=== PATIENT | male | born 1990 | race Caucasian/White ===

== ENCOUNTER 2018-11-14 14:31 | Emergency (ER) | payer OTHER ==
[~2018-11-14] VITALS: Ht 170.2 cm; Wt 68.9 kg
--- NOTE | 2018-11-14 15:35 | REP ---
RIGHT SHOULDER, THREE VIEWS: HISTORY: Trauma. There is no acute fracture or dislocation. The joint spaces are normal in appearance. IMPRESSION: There is no acute fracture or dislocation. Electronically Signed by Guy Gomez MD 11/14/2018 03:37 P
[2018-11-14] MEDS ORDERED: LIDOCAINE 2% MDV 20 ML VIAL SC ONE (16:15)
[2018-11-14] MEDS ORDERED: methylPREDNISolone INJ 125 MG/2 ML VIAL (J2930) IM ONE (16:15)
[2018-11-14] MEDS ORDERED: KETOROLAC TROMETHAMINE 10 MG TAB PO ONE (16:15)
[2018-11-14] MEDS ORDERED: KETO10TAB PO (16:26)
[2018-11-14 16:34] VITALS: BP 120/78
== END 2018-11-14 16:40 | disposition home or self-care (01) ==
LOC: M ED 14:31
DX: M54.12 Radiculopathy, cervical region (principal); S46.911A Strain of unspecified muscle, fascia and tendon at shoulder and upper arm level, right arm, initial encounter; X58.XXXA Exposure to other specified factors, initial encounter; Y92.89 Other specified places as the place of occurrence of the external cause; Z77.098 Contact with and (suspected) exposure to other hazardous, chiefly nonmedicinal, chemicals
CPT/HCPCS: 20552; 73030; 96372; 99283; J2930

== ENCOUNTER 2019-08-06 22:39 | Inpatient (IN) | payer OTHER ==
[~2019-08-06] VITALS: Ht 172.7 cm; Wt 65.2 kg
[~2019-08-06 22:39] MED LIST: KETO10TAB PO
[2019-08-06 23:35] LABS: HEMATOCRIT 46.7 % (42.0-52.0); HEMOGLOBIN 15.9 g/dl (13.5-17.5); MEAN CORPUSCULAR HEMOGLOBIN 30.5 pg (27.0-33.0); MEAN CORPUSCULAR VOLUME 89.6 fl (80.0-96.0); PLATELET COUNT, AUTOMATED 250 10^3/uL (150-450); RED BLOOD COUNT 5.21 10^6/uL (4.30-6.10); WHITE BLOOD COUNT 8.1 10^3/uL (4.0-10.0)
[2019-08-06 23:59] LABS: ACETAMINOPHEN LEVEL < 2.0 UG/ML (10.0-30.0); ALBUMIN 4.1 GM/DL (3.2-5.2); ALT/SGPT 29 U/L (12-78); BILIRUBIN,DIRECT 0.2 MG/DL (0.0-0.2); BILIRUBIN,TOTAL 0.4 MG/DL (0.2-1.0); BLOOD UREA NITROGEN 6 MG/DL (7-18); CALCIUM LEVEL 8.4 MG/DL (8.5-10.1); CARBON DIOXIDE LEVEL 25 MEQ/L (21-32); CHLORIDE LEVEL 110 MEQ/L (98-107); CREATININE FOR GFR 0.84 MG/DL (0.70-1.30); ETHYL ALCOHOL (ETHANOL) 0.312 % (0.000-0.010); GLOMERULAR FILTRATION RATE > 60.0 (>60); GLUCOSE, FASTING 103 MG/DL (70-100); POTASSIUM SERUM 3.2 MEQ/L (3.5-5.1); SALICYLATE LEVEL < 1.7 MG/DL (5.0-30.0); SODIUM LEVEL 144 MEQ/L (136-145); THYROID STIMULATING HORMONE 0.706 uIU/ML (0.358-3.740); TOTAL PROTEIN 7.7 GM/DL (6.4-8.2)
[2019-08-07 00:06] LABS: AMPHETAMINES LEVEL URINE NEGATIVE (NEGATIVE); BARBITURATES URINE NEGATIVE (NEGATIVE); BENZODIAZEPINES URINE NEGATIVE (NEGATIVE); CANNABINOIDS URINE NEGATIVE (NEGATIVE); COCAINE METABOLITE URINE NEGATIVE (NEGATIVE); METHADONE URINE NEGATIVE (NEGATIVE); OPIATES URINE NEGATIVE (NEGATIVE); PHENCYCLIDINE URINE NEGATIVE (NEGATIVE)
[2019-08-07] MEDS ORDERED: LORazepam 2 MG TAB PO PRN (07:15)
[2019-08-07] MEDS: FOLIC ACID 1 MG TAB PO SCH (10:42)
[2019-08-07] MEDS: MULTIVITAMINS/MINERALS THERAP 1 TAB PO SCH (10:42)
[2019-08-07] MEDS: THIAMINE 100 MG TAB PO SCH ×2 (10:42→21:17)
[2019-08-07] MEDS ORDERED: POTASSIUM CHLORIDE 10 MEQ SR TABLET PO ONE (15:30)
[2019-08-07] MEDS ORDERED: ACETAMINOPHEN TAB 650MG DOSE (2X325MG) PO PRN (17:45)
[2019-08-07] MEDS ORDERED: MAALOX 30 ML SUSP *UDC PO PRN (17:45)
[2019-08-07] MEDS ORDERED: MOM 30ML SUSPENSION UDC PO PRN (17:45)
[2019-08-07 19:32] VITALS: BP 170/82
[2019-08-08 06:00] VITALS: BP 139/79
[2019-08-08] MEDS: FOLIC ACID 1 MG TAB PO SCH (08:59)
[2019-08-08] MEDS: THIAMINE 100 MG TAB PO SCH ×2 (08:59→20:31)
[2019-08-08] MEDS: NICOTINE 21MG/24HR 1 EA TRANSDERMAL TD SCH (08:59)
[2019-08-08] MEDS: MULTIVITAMINS/MINERALS THERAP 1 TAB PO SCH (08:59)
--- NOTE | 2019-08-08 11:26 | MHHPEPDOC ---
[facility] History & Physical History and Physical DATE OF ADMISSION: Aug 07, 2019 at 17:37 New Patient Lakhwinder Avelar MRN: N/A Date of : N/A Date of Service: 08/08/2019 Chief Complaint "This is a misunderstanding." History of Present Illness The patient, a 29-year-old man, was admitted after reportedly becoming drunk and making unusual statements on the phone to a friend. He was admitted out of abundance of caution, however, the patient became sober and reported that he had no suicidal thoughts or intentions and had been severely intoxicated. The patient's fiance was called in our collateral gathering where she revealed that he has not been suicidal and that she has noticed Facebook posts. When I met the patient, the patient reported that he had otherwise been in his normal state of health, denying any significant depression prior, reports that he began to drink and had been complaining about his fiancee making unusual suicidal statements, but does not remember a fair portion of it. He denies any major interactions with mental health prior and reports that he is looking forward to being on Sunday. Review Of Systems Depression: As above. Anxiety: The patient denies any excessive worry associated with physical symptoms. They deny any experience of discreet panic in the past. Nia: The patient denies any episodes of euphoria/dysphoria associated with decreased need for sleep, hedonism, talkatively or impulsivity lasting longer than 5 days. Psychotic: The patient denies any experiences of auditory or visual hallucinations. They deny any episodes of paranoia or delusional thinking in the past Trauma: The patient denies any traumatic events associated with nightmares or intrusive thoughts. Borderline: The patient screens negative for borderline personality at this junction. Change depression dura as above Past Psychiatric History Has gone to [facility] counseling and has voluntarily gone to [facility] addictions programs/ on no current medications. Allergies Please see below. Family Psychiatric History The patient denies/is unaware any history of mental health history including addictions and suicide. Social History The patient is a never man who is planning to get to his fiance 4-5 months, currently lives in the [facility], identifies as heterosexual, has 2 children from previous relationships who don't live with him at this time and no legal involvement, currently is [employer], completed trade school for commercial driving, has difficulties with DUI's/public intoxication twice, grew up with parents, with a good relationship with mom, poor relation with father. Has been in the a little over a year and a half. Substance Abuse History The patient reports drinking heavily from middle school at age 14, rarely addicted to alcohol. Reports some vaporizer, tobacco. Denies other illicit subs tances. Medical History Patient has no significant past medical history. Mental Status Examination General: Well dressed with good hygiene Speech: Spontaneous and fluid Thought processes: Linear and logical MSK: Smooth and coordinated gait, no signs of tremors or involuntary orofacial movements Thought content: Future orientated Abstract reasoning, and computation: Intact Description of associations: Intact Description of abnormal or psychotic thoughts: Denies any suicidal or homicidal ideation. Denies any auditory or visual hallucinations. Does not appear to be responding to internal stimuli. Does not appear to be endorsing any bizarre or paranoid ideation. Judgment: fair Insight: fair Orientation: Alert and orientated 3 Cognition: Grossly normal Recent and remote memory: Intact Attention span and concentration: Intact Fund of knowledge: Adequate Mood: "okay" Affect: Euthymic with a full range Diagnoses Unspecified depressive disorder. Alcohol use disorder, [id number]. Tobacco use disorder, mild. Assessment and Plan Unspecified depressive disorder: Potentially due to substance observation over the weekend conversion to voluntary status. Alcohol use disorder: Start CIWA. Tobacco use disorder: Start nicotine patch. Disposition The patient cannot be discharged at this time as [facility] is closed. Observation over the weekend would be judicious converting the patient to voluntary status with plan. Problem List 1. Risk for suicide. 2. Substance use. Initial Treatment Plan 1. Patient was admitted on a 9.39 legal status. 2. Complete history was obtained. 3. With patients permission, family will be contacted and database will be expanded. 4. Patients medication regimen will be reviewed and changed accordingly. 5. Patient will be provided with protected environment. 6. Patient will be treated with individual, group, and milieu therapies. 7. Patient will receive supportive psych-education. 8. Discharge planning will commence immediately. 9. Outpatient follow-up treatment will be strongly recommended. 10. The initial treatment plan will focus initially on: Estimated Length Of Stay 3 days. Time Spent 70 minutes. Sunday Vital Signs Vital Signs Date Time Temp Pulse Resp B/P (MAP) Pulse Ox O2 Delivery O2 Flow Rate FiO2 08/08/19 06:00 97.7 61 16 139/79 (99) 08/07/19 19:32 100 Room Air Medications Scheduled Nicotine (Nicotine Patch) 21 Mg Patch.td24, 1 PATCH TD DAILY for tobacco Allergies Coded Allergies: No Known Allergies (Unverified , 11/14/18) KECIA MALDONADO DO Aug 08, 2019 11:26
--- NOTE | 2019-08-08 12:00 | HPEPDOC ---
General Date of Admission Aug 07, 2019 at 17:37 Date of Service: Aug 08, 2019 Chief Complaint The patient is a 29-year-old male admitted with a reason for visit of Unspecified Depressive Disorder. Source: Patient Exam Limitations: No limitations Timing/Duration: Other Severity: Other (not applicable not applicable) Associated Symptoms: Other (not applicable) History of Present Illness 29 years old male with past medical history of no medical issues, came in with chief complaints of mentally unstable, but not sure whether he is suicidal. Patient admitted to inpatient mental health unit for depression and psychiatric intervention. Patient does have a history of drinking large amount of alcohol but no drugs. Patient denies any medical complaints such as chest pain, shortness breath, nausea, vomiting, diarrhea, etc. Home Medications No Active Prescriptions or Reported Meds Allergies Coded Allergies: No Known Allergies (Unverified , 11/14/18) Past Medical History Medical History Depression, multiple lacerations bilateral wrist possibly suicidal attempts Surgical History None Social History * Smoker: Denies Alcohol: Denies Drugs: denies A-FIB/CHADSVASC A-FIB History Current/History of A-Fib/PAF?: No Review of Systems Constitutional: Denies: Chills, Fever, Malaise, Night Sweats, Weakness, F atigue, Weight Loss, Lethargy, Other Eyes: Denies: Pain, Vision change, Conjunctivae inflammation, Eyelid inflammation, Redness, Other ENT: Denies: Head Aches, Ear Pain, Dysphagia, Sinus Congestion, Post Nasal Dr ip, Sore Throat, Epistaxis, Other Symptoms Skin: Denies: Rash, Lesions, Jaundice, Bruising, Itching, Dry, Breakdown, Nail Changes, Other Pulmonary: Denies: Dyspnea, Cough, Pleuritic Chest Pain, Other Symptoms Cardiovascular: Denies: Chest Pain, Palpitations, Orthopnea, Paroxysmal Noc. Dyspnea, Edema, Lt Headedness, Other Symptoms Gastrointestinal: Denies: Nausea, Vomiting, Abdominal Pain, Diarrhea, Constipation, Melena, Hematochezia, Other Symptoms Genitourinary: Denies: Dysuria, Frequency, Incontinence, Hematuria, Retention, Other Symptoms Hematologic: Denies: Bruising, Bleeding Excessively, Petecchia, Purpura, Enlarged Lymph Nodes, Other Hematologic Endocrine: Denies: Polydipsia, Polyphagia, Polyuria, Heat Intolerance, Cold Intolerance, Other Endocrine Sx Musculoskeletal: Denies: Neck Pain, Back Pain, Shoulder Pain, Arm Pain, Hand Pain, Leg Pain, Foot Pain, Joint Pain, Muscle Pain, Spasms, Other Symptoms Neurological: Denies: Weakness, Numbness, Incoordination, Change in speech, Confusion, Seizures, Other Symptoms Psych: Denies: Mood Normal, Anxiety, Depression, Memory Issues, Thoughts of Self Harm, Anger, Thoughts of Harming Other, Other Psych Physical Examination General Exam: Positive: Alert, Cooperative Eye Exam: Positive: PERRLA, Conjunctiva & lids normal ENT Exam: Positive: Atraumatic, Mucous membr. moist/pink Neck Exam: Positive: Supple Chest Exam: Positive: Clear to auscultation, Normal air movement Heart Exam: Positive: Rate Normal, Normal S1, Normal S2 Abdomen Exam: Positive: Soft Extremity Exam: Positive: Normal pulses Skin Exam: Positive: Nl turgor and temperature Neuro Exam: Positive: Strength at 5/5 X4 ext, Sensation Intact, Cranial Nerves 3-12 NL Psych Exam: Positive: Mood NL, Oriented x 3 Vital Signs Vital Signs Date Time Temp Pulse Resp B/P (MAP) Pulse Ox O2 Delivery O2 Flow Rate FiO2 08/08/19 06:00 97.7 61 16 139/79 (99) 08/07/19 19:32 100 Room Air Problems (1) Depression Status: Acute Problem Text: 29 years old male with past medical history of possible suicidal attempts as he has a multiple superficial lacerations to his bilateral wrist and abrasions to his neck secondary to self mutilation was admitted with intoxication of alcohol and depression, but individual and group therapies as per psych Medication intervention as per psych Will follow patient for repeat blood work in a.m. (2) Hypokalemia Status: Acute Problem Text: Most likely secondary to alcoholism and hypomagnesemia Will order CBC, CMP and magnesium levels in a.m. Will order potassium supplement 40 mg by mouth 1 dose today (3) Nicotine abuse Status: Chronic Problem Text: Nicotine supplement has been ordered (4) Alcohol abuse Status: Chronic Problem Text: History of acute on chronic alcohol abuse Patient has been started on folic acid, thiamine, multivitamins and benzodiazepine when necessary Will continue monitor clinically for any withdrawal symptoms Plan / VTE VTE Prophylaxis Ordered?: Yes VTE Exclusion Mechanical Proph: Low Risk for VTE VTE Exclusion Pharmacological: At Low Risk for VTE HERMES DAVIDSON MD Aug 08, 2019 11:59
[2019-08-08] MEDS ORDERED: NICO21PAT TD (15:40)
[2019-08-08 16:21] VITALS: BP 136/80
[2019-08-08] MEDS: traZODone 50 MG TAB PO PRN (21:52)
[2019-08-09 05:50] VITALS: BP 127/61
[2019-08-09 07:53] LABS: BASO # 0.1 10^3/uL (0.0-0.2); BASO % 0.7 % (0.0-1.0); EOS # 0.2 10^3/uL (0.0-0.5); EOS % 3.1 % (0.0-3.0); HEMATOCRIT 41.7 % (42.0-52.0); HEMOGLOBIN 13.8 g/dl (13.5-17.5); LYMPH # 2.1 10^3/uL (1.5-5.0); LYMPH % 31.4 % (24.0-44.0); MEAN CORPUSCULAR HEMOGLOBIN 30.3 pg (27.0-33.0); MEAN CORPUSCULAR HGB CONC 33.1 g/dl (32.0-36.5); MEAN CORPUSCULAR VOLUME 91.4 fl (80.0-96.0); MONO # 0.7 10^3/uL (0.0-0.8); MONO % 10.5 % (0.0-5.0); NEUTROPHILS # 3.7 10^3/uL (1.5-8.5); NEUTROPHILS % 54.2 % (36.0-66.0); PLATELET COUNT, AUTOMATED 200 10^3/uL (150-450); RED BLOOD COUNT 4.56 10^6/uL (4.30-6.10); WHITE BLOOD COUNT 6.8 10^3/uL (4.0-10.0)
[2019-08-09 08:23] LABS: ALBUMIN 3.1 GM/DL (3.2-5.2); ALT/SGPT 22 U/L (12-78); BILIRUBIN,TOTAL 0.5 MG/DL (0.2-1.0); BLOOD UREA NITROGEN 8 MG/DL (7-18); CALCIUM LEVEL 8.6 MG/DL (8.5-10.1); CARBON DIOXIDE LEVEL 28 MEQ/L (21-32); CHLORIDE LEVEL 110 MEQ/L (98-107); CREATININE FOR GFR 0.75 MG/DL (0.70-1.30); GLOMERULAR FILTRATION RATE > 60.0 (>60); GLUCOSE, FASTING 89 MG/DL (70-100); MAGNESIUM LEVEL 2.1 MG/DL (1.8-2.4); POTASSIUM SERUM 3.6 MEQ/L (3.5-5.1); SODIUM LEVEL 143 MEQ/L (136-145); TOTAL PROTEIN 6.4 GM/DL (6.4-8.2)
[2019-08-09] MEDS: NICOTINE 21MG/24HR 1 EA TRANSDERMAL TD SCH (08:46)
[2019-08-09] MEDS: THIAMINE 100 MG TAB PO SCH ×2 (08:47→20:02)
[2019-08-09] MEDS: FOLIC ACID 1 MG TAB PO SCH (08:47)
[2019-08-09] MEDS: MULTIVITAMINS/MINERALS THERAP 1 TAB PO SCH (08:47)
--- NOTE | 2019-08-09 09:32 | MHIPNPDOC ---
[facility] Progress Note Progress Note DATE OF SERVICE: 08/09/19 HISTORY: The patient, a 29-year-old man, was admitted after reportedly becoming drunk and making unusual statements on the phone to a friend. He was admitted out of abundance of caution, however, the patient became sober and reported that he had no suicidal thoughts or intentions and had been severely intoxicated. The patient's fiance was called in our collateral gathering where she revealed that he has not been suicidal and that she has noticed Facebook posts. When I met the patient, the patient reported that he had otherwise been in his normal state of health, denying any significant depression prior, reports that he began to drink and had been complaining about his fiancee making unusual brittany cidal statements, but does not remember a fair portion of it. He denies any major interactions with mental health prior and reports that he is looking forward to being on Sunday. VITAL SIGNS: See below. NEW TEST RESULTS: See below. CURRENT MEDICATIONS: See below. MENTAL STATUS EXAMINATION: General: Well dressed with good hygiene Speech: Spontaneous and fluid Thought processes: Linear and logical MSK: Smooth and coordinated gait, no signs of tremors or involuntary orofacial movements Thought content: Future orientated Abstract reasoning, and computation: Intact Description of associations: Intact Description of abnormal or psychotic thoughts: Denies any suicidal or homicidal ideation. Denies any auditory or visual hallucinations. Does not appear to be responding to internal stimuli. Does not appear to be endorsing any bizarre or paranoid ideation. Judgment: fair Insight: fair Orientation: Alert and orientated 3 Cognition: Grossly normal Recent and remote memory: Intact Attention span and concentration: Intact Fund of knowledge: Adequate Mood: "alright" Affect: Euthymic with a full range DIAGNOSES: Unspecified depressive disorder. Alcohol use disorder, [id number]. Tobacco use disorder, mild. ASSESSMENT:Pt seen and states that his mood is "alright". States his mood is improving. States he slept well last night. Feels he is tolerating his medications and they're beneficial. States he's tolerating alcohol detox and that his alcohol withdrawal is improving. He is attending groups and finding them helpful. He denies SI/HI, hallucinations, delusions. Pt feels safe here. MANAGEMENT PLAN: continue Dr. Barroso's plan. TIME SPENT: 30 minutes. Vital Signs Vital Signs Date Time Temp Pulse Resp B/P (MAP) Pulse Ox O2 Delivery O2 Flow Rate FiO2 08/09/19 05:50 98.1 61 18 127/61 (83) 08/07/19 19:32 100 Room Air Laboratory Data 24H Labs Laboratory Tests 2 08/09/19 07:32: Immature Granulocyte % (Auto) 0.1, Neutrophils (%) (Auto) 54.2, Lymphocytes (%) (Auto) 31.4, Monocytes (%) (Auto) 10.5H, Eosinophils (%) (Auto) 3.1H, Basophils (%) (Auto) 0.7, Neutrophils # (Auto) 3.7, Lymphocytes # (Auto) 2.1, Monocytes # (Auto) 0.7, Eosinophils # (Auto) 0.2, Basophils # (Auto) 0.1, Nucleated Red Blood Cells % (auto) 0.0 08/09/19 07:33: Anion Gap 5L, Glomerular Filtration Rate > 60.0, Calcium Level 8.6, Magnesium Level 2.1, Total Bilirubin 0.5, Aspartate Amino Transf (AST/SGOT) 12, Alanine Aminotransferase (ALT/SGPT) 22, Alkaline Phosphatase 70, Total Protein 6.4, Albumin 3.1#L, Albumin/Globulin Ratio 0.94L CBC/BMP Laboratory Tests 08/09/19 07:32 08/09/19 07:33 Current Medications Current Medications Medications (Trade) Dose Ordered Sig/Brayden Route PRN Reason Start Time Stop Time Status Last Admin Dose Admin Acetaminophen (Tylenol Tab) 650 mg Q6HP PRN PO HEADACHE or DISCOMFORT 08/07/19 17:45 Al Hydrox/Mg Hydrox/Simethicone (Mylanta) 30 ml Q4HP PRN PO HEARTBURN/INDIGESTION 08/07/19 17:45 Folic Acid (Folic Acid) 1 mg DAILY PO 08/07/19 09:00 08/09/19 08:47 Home Med (Med Rec Complete!) ASDIRECTED XX 08/07/19 15:00 08/07/19 15:06 DC Lorazepam (Ativan) 2 mg ASDIRECTED PRN PO SEE PROTOCOL 08/07/19 07:15 Magnesium Hydroxide (Milk Of Magnesia) 30 ml DAILYPRN PRN PO CONSTIPATION 08/07/19 17:45 Multivitamins (Theragram-M) 1 tab DAILY PO 08/07/19 09:00 08/09/19 08:47 Nicotine (Nicoderm Cq 21mg) 1 patch DAILY TD 08/08/19 09:00 Thiamine HCl (Thiamine HCl) 100 mg BID PO 08/07/19 09:00 08/10/19 08:59 08/09/19 08:47 Trazodone HCl (Desyrel) 50 mg QHSP PRN PO INSOMNIA 08/08/19 20:45 08/08/19 21:52 Allergies Coded Allergies: No Known Allergies (Unverified , 11/14/18) CONRADO HAWLEY DO Aug 09, 2019 09:32
[2019-08-09 16:13] VITALS: BP 133/89
[2019-08-09] MEDS: traZODone 50 MG TAB PO PRN (22:14)
[2019-08-10 06:16] VITALS: BP 142/66
[2019-08-10] MEDS: NICOTINE 21MG/24HR 1 EA TRANSDERMAL TD SCH (09:00)
[2019-08-10] MEDS: MULTIVITAMINS/MINERALS THERAP 1 TAB PO SCH (09:40)
[2019-08-10] MEDS: FOLIC ACID 1 MG TAB PO SCH (09:40)
--- NOTE | 2019-08-10 09:57 | MHIPNPDOC ---
[facility] Progress Note Progress Note DATE OF SERVICE: 08/10/19 HISTORY:The patient, a 29-year-old man, was admitted after reportedly becoming drunk and making unusual statements on the phone to a friend. He was admitted ou t of abundance of caution, however, the patient became sober and reported that he had no suicidal thoughts or intentions and had been severely intoxicated. The patient's fiance was called in our collateral gathering where she revealed that he has not been suicidal and that she has noticed Facebook posts. When I met the patient, the patient reported that he had otherwise been in his normal state of health, denying any significant depression prior, reports that he began to drink and had been complaining about his fiancee making unusual suicidal statements, but does not remember a fair portion of it. He denies any major interactions with mental health prior and reports that he is looking forward to being on Sunday. VITAL SIGNS: See below. NEW TEST RESULTS: See below. CURRENT MEDICATIONS: See below. MENTAL STATUS EXAMINATION: General: Well dressed with good hygiene Speech: Spontaneous and fluid Thought processes: Linear and logical MSK: Smooth and coordinated gait, no signs of tremors or involuntary orofacial movements Thought content: Future orientated Abstract reasoning, and computation: Intact Description of associations: Intact Description of abnormal or psychotic thoughts: Denies any suicidal or homicidal ideation. Denies any auditory or visual hallucinations. Does not appear to be responding to internal stimuli. Does not appear to be endorsing any bizarre or paranoid ideation. Judgment: fair Insight: fair Orientation: Alert and orientated 3 Cognition: Grossly normal Recent and remote memory: Intact Attention span and concentration: Intact Fund of knowledge: Adequate Mood: "ok" Affect: Euthymic with a full range DIAGNOSES: Unspecified depressive disorder. Alcohol use disorder, [id number]. Tobacco use disorder, mild. ASSESSMENT:Pt seen and states that his mood is "ok" and that his mood continues to improve. States he slept well last night. States that trazodone aids him to sleep better. States he's tolerating alcohol detox and that his alcohol withdrawal is improving. Pt tends to isolate in his room mostly in the morning and more towards the afternoon he starts to attend groups and finding them helpful. He denies SI/HI, hallucinations, delusions. Pt feels safe here. MANAGEMENT PLAN: continue Dr. Barroso's plan. TIME SPENT: 30 minutes. Vital Signs Vital Signs Date Time Temp Pulse Resp B/P (MAP) Pulse Ox O2 Delivery O2 Flow Rate FiO2 08/10/19 06:16 98.7 63 16 142/66 (91) Room Air 08/07/19 19:32 100 Current Medications Current Medications Medications (Trade) Dose Ordered Sig/Brayden Route PRN Reason Start Time Stop Time Status Last Admin Dose Admin Acetaminophen (Tylenol Tab) 650 mg Q6HP PRN PO HEADACHE or DISCOMFORT 08/07/19 17:45 Al Hydrox/Mg Hydrox/Simethicone (Mylanta) 30 ml Q4HP PRN PO HEARTBURN/INDIGESTION 08/07/19 17:45 Folic Acid (Folic Acid) 1 mg DAILY PO 08/07/19 09:00 08/10/19 09:40 Home Med (Med Rec Complete!) ASDIRECTED XX 08/07/19 15:00 08/07/19 15:06 DC Lorazepam (Ativan) 2 mg ASDIRECTED PRN PO SEE PROTOCOL 08/07/19 07:15 Magnesium Hydroxide (Milk Of Magnesia) 30 ml DAILYPRN PRN PO CONSTIPATION 08/07/19 17:45 Multivitamins (Theragram-M) 1 tab DAILY PO 08/07/19 09:00 08/10/19 09:40 Nicotine (Nicoderm Cq 21mg) 1 patch DAILY TD 08/08/19 09:00 Thiamine HCl (Thiamine HCl) 100 mg BID PO 08/07/19 09:00 08/10/19 08:59 DC 08/09/19 20:02 Trazodone HCl (Desyrel) 50 mg QHSP PRN PO INSOMNIA 08/08/19 20:45 08/09/19 22:14 Allergies Coded Allergies: No Known Allergies (Unverified , 11/14/18) CONRADO HAWLEY DO Aug 10, 2019 09:57
[2019-08-10 16:01] VITALS: BP 140/84
[2019-08-10] MEDS: traZODone 50 MG TAB PO PRN (23:01)
[2019-08-11 06:37] VITALS: BP 127/65
[2019-08-11] MEDS: NICOTINE 21MG/24HR 1 EA TRANSDERMAL TD SCH (09:00)
[2019-08-11] MEDS: MULTIVITAMINS/MINERALS THERAP 1 TAB PO SCH (09:25)
[2019-08-11] MEDS: FOLIC ACID 1 MG TAB PO SCH (09:25)
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
== END 2019-08-11 11:40 | disposition home or self-care (01) | DRG 881 ==
LOC: M ED 22:39 → M ED INP 08-07 17:37 → M PSY 08-07 18:18
PROVIDERS: ADMIT Psychiatry & Neurology Psychiatry; ATTEND Psychiatry & Neurology Addiction Medicine
DX: F32.9 Major depressive disorder, single episode, unspecified (principal); F10.20 Alcohol dependence, uncomplicated; F17.200 Nicotine dependence, unspecified, uncomplicated; Z79.899 Other long term (current) drug therapy; E87.6 Hypokalemia

== ENCOUNTER 2019-10-31 19:32 | Emergency (ER) | payer OTHER ==
[~2019-10-31] VITALS: Ht 172.7 cm; Wt 64.8 kg
[~2019-10-31 19:32] MED LIST changes: +NICO21PAT TD
[2019-10-31 20:18] LABS: HEMATOCRIT 44.8 % (42.0-52.0); HEMOGLOBIN 15.7 g/dl (13.5-17.5); MEAN CORPUSCULAR HEMOGLOBIN 30.7 pg (27.0-33.0); MEAN CORPUSCULAR VOLUME 87.5 fl (80.0-96.0); PLATELET COUNT, AUTOMATED 243 10^3/uL (150-450); RED BLOOD COUNT 5.12 10^6/uL (4.30-6.10); WHITE BLOOD COUNT 11.2 10^3/uL (4.0-10.0)
[2019-10-31 20:52] LABS: AMPHETAMINES LEVEL URINE NEGATIVE (NEGATIVE); BARBITURATES URINE NEGATIVE (NEGATIVE); BENZODIAZEPINES URINE NEGATIVE (NEGATIVE); CANNABINOIDS URINE POSITIVE (NEGATIVE); COCAINE METABOLITE URINE NEGATIVE (NEGATIVE); METHADONE URINE NEGATIVE (NEGATIVE); OPIATES URINE POSITIVE (NEGATIVE); PHENCYCLIDINE URINE POSITIVE (NEGATIVE)
[2019-10-31 20:55] LABS: ACETAMINOPHEN LEVEL < 2.0 UG/ML (10.0-30.0); ALBUMIN 4.5 GM/DL (3.2-5.2); ALT/SGPT 25 U/L (12-78); BILIRUBIN,DIRECT 0.4 MG/DL (0.0-0.2); BILIRUBIN,TOTAL 1.3 MG/DL (0.2-1.0); BLOOD UREA NITROGEN 9 MG/DL (7-18); CALCIUM LEVEL 9.2 MG/DL (8.5-10.1); CARBON DIOXIDE LEVEL 25 MEQ/L (21-32); CHLORIDE LEVEL 106 MEQ/L (98-107); CPK CREATINE PHOSPHOKINASE 101 U/L (39-308); CREATININE FOR GFR 1.15 MG/DL (0.70-1.30); ETHYL ALCOHOL (ETHANOL) < 0.003 % (0.000-0.010); GLOMERULAR FILTRATION RATE > 60.0 (>60); GLUCOSE, FASTING 93 MG/DL (70-100); POTASSIUM SERUM 3.4 MEQ/L (3.5-5.1); SALICYLATE LEVEL < 1.7 MG/DL (5.0-30.0); SODIUM LEVEL 140 MEQ/L (136-145); TOTAL PROTEIN 8.2 GM/DL (6.4-8.2)
[2019-10-31 21:18] VITALS: BP 155/98
--- NOTE | 2019-10-31 22:57 | ECGEPIP ---
[facility] - ED Test Date: 2019-10-31 Pat Name: KAVYA PATEL Department: Room: - Gender: Male Desk Maker: ASTRID : 1990 Requested By: ANGELICA GUTIERREZ Order Number: [id number] Reading MD: Rodriguez Forrester Measurements Intervals [place] Rate: 114 P: 77 NE: 118 QRS: 69 QRSD: 93 T: -3 QT: 261 QTc: 361 Interpretive Statements SINUS TACHYCARDIA WITH SHORT NE INTERVAL WITH OCCASIONAL SUPRAVENTRICULAR PREMATURE COMPLEXES POSSIBLE LEFT ATRIAL ENLARGEMENT LVH WITH STRAIN PATTERN NO PRIORS FOR COMPARISON Electronically Signed on 10-31-2019 22:57:31 EDT by Rodriguez Forrester
== END 2019-10-31 21:44 | disposition home or self-care (01) ==
LOC: M ED 19:32
DX: F19.10 Other psychoactive substance abuse, uncomplicated (principal); R00.0 Tachycardia, unspecified; F17.210 Nicotine dependence, cigarettes, uncomplicated
CPT/HCPCS: 36415; 80048; 80076; 80307; 82550; 84443; 85027; 93005; 99284; G0480

== ENCOUNTER 2020-01-27 08:03 | Emergency (ER) | payer OTHER ==
[~2020-01-27 08:03] MED LIST changes: +IBUPROFEN 800 MG TAB As Ordered ONE; +IBUPROFEN 800 MG TAB ONE
[2020-01-27] MEDS ORDERED: ceFAZolin 2 GM/D5W 50 ML IV BAG (J0690 PER 500MG) ONE (12:00)
[2020-02-22 22:52] LABS: BLOOD UREA NITROGEN 9 MG/DL (7-18); CALCIUM LEVEL 8.9 MG/DL (8.5-10.1); CARBON DIOXIDE LEVEL 31 MEQ/L (21-32); CHLORIDE LEVEL 103 MEQ/L (98-107); CREATININE FOR GFR 1.02 MG/DL (0.70-1.30); GLOMERULAR FILTRATION RATE > 60.0 (>60); GLUCOSE, FASTING 83 MG/DL (70-100); POTASSIUM SERUM 3.7 MEQ/L (3.5-5.1); SODIUM LEVEL 140 MEQ/L (136-145)
[2020-03-06 15:53] LABS: BASO # 0.1 10^3/uL (0.0-0.2); BASO % 0.4 % (0.0-1.0); EOS # 0.1 10^3/uL (0.0-0.5); EOS % 0.4 % (0.0-3.0); HEMOGLOBIN 14.8 g/dl (13.5-17.5); LYMPH # 1.9 10^3/uL (1.5-5.0); LYMPH % 13.3 % (24.0-44.0); MEAN CORPUSCULAR HEMOGLOBIN 30.3 pg (27.0-33.0); MEAN CORPUSCULAR HGB CONC 33.6 g/dl (32.0-36.5); MONO # 1.4 10^3/uL (0.0-0.8); MONO % 9.9 % (0.0-5.0); NEUTROPHILS # 10.9 10^3/uL (1.5-8.5); NEUTROPHILS % 75.7 % (36.0-66.0); PLATELET COUNT, AUTOMATED 218 10^3/uL (150-450); RED BLOOD COUNT 4.89 10^6/uL (4.30-6.10); WHITE BLOOD COUNT 14.5 10^3/uL (4.0-10.0)
[2020-03-06 15:58] LABS: ERYTHROCYTE SEDIMENTATION RATE 10 mm/hr (0-15)
== END 2020-01-27 12:52 | disposition home or self-care (01) ==
LOC: M ED 08:03
DX: L03.113 Cellulitis of right upper limb (principal)
CPT/HCPCS: 73080; 80048; 85025; 85652; 86140; 87040; 96365; 99283; J0690

== ENCOUNTER 2020-01-28 11:15 | Inpatient (IN) | payer OTHER ==
[~2020-01-28 11:15] MED LIST changes: -IBUPROFEN 800 MG TAB As Ordered ONE; -IBUPROFEN 800 MG TAB ONE
[2020-01-28] MEDS ORDERED: ceFAZolin 2 GM/D5W 50 ML IV BAG (J0690 PER 500MG) As Ordered ONE (15:02)
[2020-01-28] MEDS ORDERED: BUPIVACAINE HCL 0.25% 30ML VIAL As Ordered ONE (15:02)
[2020-01-28] MEDS ORDERED: ROCURONIUM BROMIDE 50 MG/5 ML VIAL As Ordered ONE (15:03)
[2020-01-28] MEDS ORDERED: LIDOCAINE 2% 100MG/5ML SDV (FOR ANES.) As Ordered ONE (15:03)
[2020-01-28] MEDS ORDERED: SUCCINYLCHOLINE 100 MG/5 ML SYRINGE (J0330) As Ordered ONE ×2 (15:03→15:15)
[2020-01-28] MEDS ORDERED: propofoL 200 MG/20 ML VIAL As Ordered ONE (15:03)
[2020-01-28] MEDS ORDERED: fentaNYL 250 MCG/5 ML INJECTION (J3010) As Ordered ONE (15:04)
[2020-01-28] MEDS ORDERED: MIDAZOLAM INJ 2MG/2ML VIAL (J2250 PER 1MG) As Ordered ONE (15:04)
[2020-01-28] MEDS ORDERED: ONDANSETRON 4MG/2ML VIAL As Ordered ONE (15:32)
[2020-01-28] MEDS ORDERED: KETOROLAC 60MG 2ML VIAL As Ordered ONE (15:32)
[2020-01-28] MEDS ORDERED: dexameTHASONE 4 MG/ML 1ML VIAL (J1100 PER 1MG) As Ordered ONE (15:32)
[2020-01-28] MEDS ORDERED: ACETAMINOPHEN 1000MG 100ML IV BTL (OFIRMEV) (J0131 PER 10MG) As Ordered ONE (15:32)
[2020-01-28] MEDS ORDERED: PERCOCET 5MG/325MG TAB As Ordered ONE ×2 (16:11→20:28)
[2020-01-28] MEDS ORDERED: PERCOCET 5MG/325MG TAB ONE ×2 (16:11→20:28)
[2020-01-28] MEDS ORDERED: MORPHINE 2 MG/ML 1ML VIAL (J2270) ONE (23:22)
[2020-01-29] MEDS ORDERED: PERCOCET 5MG/325MG TAB As Ordered ONE ×2 (01:17→06:52)
[2020-01-29] MEDS ORDERED: PERCOCET 5MG/325MG TAB ONE ×2 (01:17→06:52)
[2020-01-29] MEDS ORDERED: ceFAZolin 2 GM/D5W 50 ML IV BAG (J0690 PER 500MG) ONE (09:22)
[2020-03-07 09:18] LABS: BASO % 0.3 % (0.0-1.0); EOS # 0.2 10^3/uL (0.0-0.5); EOS % 1.2 % (0.0-3.0); HEMATOCRIT 43.5 % (42.0-52.0); HEMOGLOBIN 14.6 g/dl (13.5-17.5); LYMPH % 14.2 % (24.0-44.0); MEAN CORPUSCULAR HEMOGLOBIN 30.3 pg (27.0-33.0); MEAN CORPUSCULAR HGB CONC 33.6 g/dl (32.0-36.5); MEAN CORPUSCULAR VOLUME 90.2 fl (80.0-96.0); MONO # 1.1 10^3/uL (0.0-0.8); MONO % 7.8 % (0.0-5.0); NEUTROPHILS # 10.5 10^3/uL (1.5-8.5); NEUTROPHILS % 76.1 % (36.0-66.0); PLATELET COUNT, AUTOMATED 236 10^3/uL (150-450); RED BLOOD COUNT 4.82 10^6/uL (4.30-6.10); WHITE BLOOD COUNT 13.8 10^3/uL (4.0-10.0)
[2020-03-08 21:13] LABS: BLOOD UREA NITROGEN 14 MG/DL (7-18); CALCIUM LEVEL 9.1 MG/DL (8.5-10.1); CARBON DIOXIDE LEVEL 31 MEQ/L (21-32); CHLORIDE LEVEL 105 MEQ/L (98-107); GLOMERULAR FILTRATION RATE > 60.0 (>60); GLUCOSE, FASTING 89 MG/DL (70-100); POTASSIUM SERUM 3.9 MEQ/L (3.5-5.1); SODIUM LEVEL 141 MEQ/L (136-145)
== END 2020-01-29 07:50 | disposition home or self-care (01) | DRG 502 ==
LOC: M ED 11:15 → M ED INP 14:54
PROVIDERS: ADMIT Orthopaedic Surgery Sports Medicine; ATTEND Orthopaedic Surgery Sports Medicine
PROC: 0M930ZZ Drainage of Right Elbow Bursa and Ligament, Open Approach (ICD-10-PCS; principal; 2020-01-28)
DX: M71.121 Other infective bursitis, right elbow (principal); R19.7 Diarrhea, unspecified; F17.200 Nicotine dependence, unspecified, uncomplicated; Z79.899 Other long term (current) drug therapy